=== PATIENT | male | born 1995 | race Caucasian/White ===

== ENCOUNTER 2023-06-02 16:13 | Emergency (ER) | payer MEDICAID, OTHER, SELFPAY ==
[2023-06-02] MEDS ORDERED: Sodium Chloride 0.9% 10 ML Syringe FLUSH PRN (16:39)
[2023-06-02] MEDS ORDERED: Midazolam 1 MG/ML 2 ML SDV IVPUSH ONE (16:39)
[2023-06-02] MEDS ORDERED: HYDROmorphone 1 MG/ML Syringe IVPUSH ONE (16:39)
[2023-06-02] MEDS ORDERED: Lidocaine 1% 20 ML MDV INJECT ONE (16:54)
[2023-06-02] MEDS ORDERED: Bacitracin/Neomycin/Polymyxin B Oint 0.9 GM U/D Packet TOP ONE (17:25)
[2023-06-02] MEDS ORDERED: ceFAZolin 1 GM Vial IVPUSH ONE (17:37)
[2023-06-02] MEDS ORDERED: Diphtheria,Pertussis(Acell),Tetanus Vaccine 0.5 ML Syringe IM ONE (17:38)
[2023-06-02] MEDS ORDERED: Acetaminophen/HYDROcodone 325-10 MG Tab PO ONE (18:44)
== END 2023-06-02 18:55 | disposition home or self-care (01) ==
LOC: KA.ED 16:13
DX: S62.512B Displaced fracture of proximal phalanx of left thumb, initial encounter for open fracture (principal); S63.105A Unspecified dislocation of left thumb, initial encounter; Z79.899 Other long term (current) drug therapy
CPT/HCPCS: 12002; 73120-LT; 73130-LT; 90471; 90715; 96374; 96375; 99283; 99283-25; A9270-GY; J0690; J1170; J2250; J3490